=== PATIENT | female | born 1955 | race American Indian/Alaskan Native ===

== ENCOUNTER 2016-05-10 13:12 | Outpatient (RCR) | payer BC ==
[2016-04-30 15:22] LABS: BASOPHILS % (AUTO) 0 % (0-10); EOSINOPHILS % (AUTO) 0 % (0-10); LYMPHOCYTES # (AUTO) 2.2 X 10^3 (1.0-4.0); LYMPHOCYTES % (AUTO) 39 % (12-44); MEAN CORPUSCULAR HEMOGLOBIN 28 PG (25-34); MEAN CORPUSCULAR HGB CONC 33 G/DL (32-36); MEAN CORPUSCULAR VOLUME 85 FL (80-99); MEAN PLATELET VOLUME 9.4 FL (7.4-10.4); MONOCYTES # (AUTO) 0.4 X 10^3 (0.0-1.0); MONOCYTES % (AUTO) 7 % (0-12); NEUTROPHILS # (AUTO) 2.9 X 10^3 (1.8-7.8); NEUTROPHILS % (AUTO) 53 % (42-75); PLATELET COUNT 226 10^3/uL (130-400); RED BLOOD COUNT 4.21 10^6/uL (4.35-5.85); RED CELL DISTRIBUTION WIDTH 13.5 % (10.0-14.5); WHITE BLOOD COUNT 5.5 10^3/uL (4.3-11.0)
[~2016-05-10 13:12] MED LIST: AMLO5TAB2 PO; BUPR100T15 PO; CALC-880 PO; DOXY100C2 PO; FENO160T PO; FENO160T12 PO; HCT25T PO; HYDR25TA4 PO; LEVO112T2 PO; LEVO750T9 PO; LEVO80CA PO; LINA5TAB PO; LIRA0.6P SC; LIRA0.6P2 SQ; LOSA100T28 PO; LOSA100T7 PO; MECL-106 PO; METF-380 PO; METF1000 PO; METO50TA2 PO; MTP50T PO; ONDA8TAB9 PO; SAXA5TAB PO; SIMV20TA3 PO; SIMV40TA4 PO; SULF1TAB35 PO; VENL75TA74 PO
[2016-05-10 13:31] LABS: BASOPHILS % (AUTO) 0 % (0-10); EOSINOPHILS % (AUTO) 0 % (0-10); LYMPHOCYTES # (AUTO) 2.1 X 10^3 (1.0-4.0); LYMPHOCYTES % (AUTO) 47 % (12-44); MEAN CORPUSCULAR HEMOGLOBIN 29 PG (25-34); MEAN CORPUSCULAR HGB CONC 34 G/DL (32-36); MEAN CORPUSCULAR VOLUME 85 FL (80-99); MEAN PLATELET VOLUME 9.5 FL (7.4-10.4); MONOCYTES # (AUTO) 0.4 X 10^3 (0.0-1.0); MONOCYTES % (AUTO) 9 % (0-12); NEUTROPHILS % (AUTO) 44 % (42-75); PLATELET COUNT 306 10^3/uL (130-400); RED BLOOD COUNT 3.98 10^6/uL (4.35-5.85); RED CELL DISTRIBUTION WIDTH 13.3 % (10.0-14.5); WHITE BLOOD COUNT 4.5 10^3/uL (4.3-11.0)
[2016-05-10 14:31] LABS: ALBUMIN 3.9 G/DL (3.2-4.5); BILIRUBIN,TOTAL 0.5 MG/DL (0.1-1.0); CALCIUM 9.5 MG/DL (8.5-10.1); CREATININE SERUM 1.54 MG/DL (0.60-1.30); POTASSIUM 4.2 MMOL/L (3.6-5.0)
[2016-05-16] MEDS ORDERED: SULF1TAB34 PO (15:21)
[2016-05-16] MEDS ORDERED: FENO160T12 PO (15:21)
[2016-05-17] MEDS ORDERED: SULF-222 PO (08:29)
[2016-05-17] MEDS ORDERED: AMLO5TAB2 PO (08:29)
[2016-05-18] MEDS ORDERED: VANC1.254 IV (12:10)
== END 2016-07-29 | disposition home or self-care (01) ==
LOC: ONC 13:12
PROVIDERS: ATTEND Internal Medicine Hematology & Oncology
DX: D61.818 Other pancytopenia (principal); D69.6 Thrombocytopenia, unspecified
CPT/HCPCS: 36415; 80053; 85025; 99213

== ENCOUNTER 2016-12-07 19:44 | Outpatient (CLI) | payer BC ==
[~2016-12-07 19:44] MED LIST changes: +SULF-222 PO; +SULF1TAB34 PO; +VANC1.254 IV
== END 2016-12-08 06:30 | disposition home or self-care (01) ==
LOC: SLEEP 19:44
PROVIDERS: ATTEND Family Medicine
DX: G47.33 Obstructive sleep apnea (adult) (pediatric) (principal); I10 Essential (primary) hypertension
CPT/HCPCS: 95811

== ENCOUNTER → 2017-08-26 | Outpatient (REF) ==
[~2017-08-26] MED LIST changes: +METO50TA15 PO; -METO50TA2 PO; +VANC1.2520 IV; -VANC1.254 IV
--- NOTE | 2017-08-26 10:59 | Diagnostic Imaging Report ---
INDICATION: Knee pain after popping sensation felt a pop while walking 3 days ago. COMPARISON: 01/23/2013. FINDINGS: There is a curvilinear focus of mineralization along the proximal and medial aspect of the medial femoral condyle which is likely due to old MCL injury. No acute fracture. Mild joint space narrowing in the medial and lateral compartments. Tiny osteophytes in the patellofemoral compartment. No knee joint effusion. There is a 6 mm mineralized focus in the anterior aspect of the intercondylar notch. IMPRESSION: 1. No acute fracture. 2. Imaging features are indicative of old MCL injury. 3. There is likely a 6 mm mineralized loose body within the intercondylar notch. Nonemergent MRI of the knee could be performed for further characterization. Dictated by: Dictated on workstation # [id number]
== END | disposition home or self-care (01) ==
LOC: OCC 10:21
PROVIDERS: ATTEND Nurse Practitioner Family
CPT/HCPCS: 73562

== ENCOUNTER 2018-09-01 16:35 | Emergency (ER) | payer BC ==
[~2018-09-01] VITALS: Ht 160 cm; Wt 94.3 kg
[~2018-09-01 16:35] MED LIST changes: -AMLO5TAB2 PO; +AMLO5TAB9 PO; -LOSA100T28 PO; +LOSA100T57 PO; +METF-399 PO; -METF1000 PO
--- OUTSIDE RECORDS SUMMARY | 2018-09-01 16:45 | XMS REPORT ---
Author Author SUSAN BRAVO [facility] Address [address] [place] [address] Care Team Providers Care Cane Burner Name Role Phone SUSAN BRAVO Unavailable PROBLEMS Type Condition ICD9-CM Code [id number] Code Onset Dates Condition Status SNOMED Code Problem Essential hypertension I10 Active 12824672 ALLERGIES Substance Reaction Event Type Date Status SulfADIAZINE Sodium anaphylaxis Drug Allergy Jul, Active Lisinopril cough Drug Allergy Jul, Active ENCOUNTERS Encounter Location Date Diagnosis [facility] [address] [id number] Aug, Contact dermatitis and eczema due to plant L24.7 ; Dysfunction of left eustachian tube H69.82 and Otalgia of left ear H92.02 [facility] [address] [id number] Jul, Dysfunction of left eustachian tube H69.82 ; Oral thrush B37.0 and BMI 40.0-44.9, adult Z68.41 [facility] [address] [id number] Jul, Acute non-recurrent pansinusitis J01.40 ; Cough in adult R05 and BMI 40.0-44.9, adult Z68.41 [facility] [place] [id number] [address] Jul, [facility] [place] [id number] [place] [phone] Mar, [facility] [place] [address] [id number] [address] Mar, IMMUNIZATIONS No Known Immunizations SOCIAL HISTORY Never Assessed REASON FOR VISIT cough/Upper respiratory congestion-[place]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 PLAN OF CARE Activity Details Follow Up prn Reason: VITAL SIGNS Height 62 in 2017-07-19 Weight 225 lbs 2017-07-19 Temperature 98 degrees Fahrenheit 2017-07-19 Heart Rate 78 bpm 2017-07-19 Respiratory Rate 20 2017-07-19 BMI 41.15 kg/m2 2017-07-19 Blood pressure systolic 138 mmHg 2017-07-19 Blood pressure diastolic 76 mmHg 2017-07-19 MEDICATIONS Medication Instructions Dosage Frequency Start Date End Date Duration Status Tessalon Perles 100 mg Orally Three times a day 1 capsule as needed for cough 8h Jul, Active Furosemide Active Victoza Active Metanx Active Losartan Potassium Active Fetzima Titration Active Saxagliptin HCl Active Synthroid Active Oxybutynin Active Potassium Chloride Active NIFEdipine Active ARIPiprazole ER Active Metformin HCl Active Metaproterenol Sulfate Active Amoxicillin 875 MG Orally every 12 hrs 1 tablet 12h Jul, Aug, 14 days Active Cetirizine HCl Active RESULTS No Results PROCEDURES No Known procedures INSTRUCTIONS MEDICATIONS ADMINISTERED No Known Medications MEDICAL (GENERAL) HISTORY Type Description Date Surgical History rotator cuff repair 1995 Surgical History 1985 Surgical History gallbladder removal 1989 Surgical History myofundiplication 2013 Surgical History hiatal hernia repair 1984 Surgical History EGD 1984 Hospitalization History reaction to sulfa medication 2016
--- OUTSIDE RECORDS SUMMARY | 2018-09-01 16:45 | XMS REPORT ---
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82 and Otalgia of left ear H92.02 [facility] [place], [facility] [address] [id number] Jul, Dysfunction of left eustachian tube H69.82 ; Oral thrush B37.0 and BMI 40.0-44.9, adult Z68.41 [facility] [place] [address] [id number] [id number] Jul, Acute non-recurrent pansinusitis J01.40 ; Cough in adult R05 and BMI 40.0-44.9, adult Z68.41 [facility] [id number], [place] [address] Jul, [facility] [address] [place] [address] Mar, [facility] [id number] [address] Mar, IMMUNIZATIONS No Known Immunizations SOCIAL HISTORY Never Assessed REASON FOR VISIT poison diamond[place], Left ear pain PLAN OF CARE Activity Details Follow Up prn Reason: VITAL SIGNS Height 62 in 2017-09-04 Weight 215.6 lbs 2017-09-04 Temperature 97.4 degrees Fahrenheit 2017-09-04 Heart Rate 74 bpm 2017-09-04 Respiratory Rate 18 2017-09-04 BMI 39.43 kg/m2 2017-09-04 MEDICATIONS Medication Instructions Dosage Frequency Start Date End Date Duration Status Metaproterenol Sulfate Active Metanx Active Fetzima Titration Active Saxagliptin HCl Active Cetirizine HCl Active Losartan Potassium Active Synthroid Active ARIPiprazole ER Active NIFEdipine Active PredniSONE 20 MG Orally Once a day 2 tablet 24h 5 day(s) Active Victoza Active Oxybutynin Active Furosemide Active Tessalon Perles 100 mg Orally Three times a day 1 capsule as needed for cough 8h Jul, Active Potassium Chloride Active Metformin HCl Active RESULTS No Results PROCEDURES No Known procedures INSTRUCTIONS MEDICATIONS ADMINISTERED No Known Medications MEDICAL (GENERAL) HISTORY Type Description Date Surgical History rotator cuff repair 1995 Surgical History 1985 Surgical History gallbladder removal 1989 Surgical History myofundiplication 2013 Surgical History hiatal hernia repair 1984 Surgical History EGD 1984 Hospitalization History reaction to sulfa medication 2016
--- OUTSIDE RECORDS SUMMARY | 2018-09-01 16:45 | XMS REPORT ---
Author Author DARYL Cruz Organization [facility] Address [address] [place] [address] Care Team Providers Care Art Glass Designer Name Role Phone DARYL Cruz Unavailable PROBLEMS Type Condition ICD9-CM Code [id number] Code Onset Dates Condition Status SNOMED Code Problem Essential hypertension I10 Active 46510804 ALLERGIES Substance Reaction Event Type Date Status SulfADIAZINE Sodium anaphylaxis Drug Allergy Jul, Active Lisinopril cough Drug Allergy Jul, Active ENCOUNTERS Encounter Location Date Diagnosis [facility] [address] [id number] Aug, Contact dermatitis and eczema due to plant L24.7 ; Dysfunction of left eustachian tube H69.82 and Otalgia of left ear H92.02 [facility] [address] [id number] Jul, Dysfunction of left eustachian tube H69.82 ; Oral thrush B37.0 and BMI 40.0-44.9, adult Z68.41 [facility] [address] [id number] [id number] Jul, Acute non-recurrent pansinusitis J01.40 ; Cough in adult R05 and BMI 40.0-44.9, adult Z68.41 [facility] [address] [id number] [address] Jul, [facility] [address], [place] [address] Mar, [facility] [address] [id number] [address] Mar, IMMUNIZATIONS Vaccine Route Administration Date Status DEPO MEDROL 80 MG/ML IM Intramuscular Jul 31, 2017 Administered SOCIAL HISTORY Never Assessed REASON FOR VISIT sore throat-[facility] PLAN OF CARE Activity Details Follow Up prn Reason: VITAL SIGNS Height 62 in 2017-07-31 Weight 225 lbs 2017-07-31 Temperature 97.1 degrees Fahrenheit 2017-07-31 Heart Rate 73 bpm 2017-07-31 Respiratory Rate 18 2017-07-31 BMI 41.15 kg/m2 2017-07-31 Blood pressure systolic 161 mmHg 2017-07-31 Blood pressure diastolic 82 mmHg 2017-07-31 MEDICATIONS Medication Instructions Dosage Frequency Start Date End Date Duration Status Metaproterenol Sulfate Active Saxagliptin HCl Active Furosemide Active Potassium Chloride Active NIFEdipine Active Metanx Active ARIPiprazole ER Active Cetirizine HCl Active Diflucan 100 mg Orally once daily 1 tablet 24h Jul, 5 Aug, 2017 05 days Active Fetzima Titration Active Synthroid Active Amoxicillin 875 MG Orally every 12 hrs 1 tablet 12h Jul, Aug, 14 days Active Losartan Potassium Active Oxybutynin Active Victoza Active Metformin HCl Active Tessalon Perles 100 mg Orally Three times a day 1 capsule as needed for cough 8h Jul, Active RESULTS No Results PROCEDURES Procedure Date Ordered Result Body Site DEPO MEDROL 80 MG/ML Jul 31, 2017 THER/PROPH/DIAG INJ, SC/IM Jul 31, 2017 INSTRUCTIONS MEDICATIONS ADMINISTERED No Known Medications MEDICAL (GENERAL) HISTORY Type Description Date Surgical History rotator cuff repair 1995 Surgical History 1985 Surgical History gallbladder removal 1989 Surgical History myofundiplication 2013 Surgical History hiatal hernia repair 1984 Surgical History EGD 1984 Hospitalization History reaction to sulfa medication 2016
--- OUTSIDE RECORDS SUMMARY | 2018-09-01 16:45 | XMS REPORT | Clinical Summary ---
Author Author [facility] Organization [facility] Address Unknown Phone Unavailable Care Team Providers Care Data Modeler Name Role Phone PCP Unavailable Allergies Active Allergy Reactions Severity Noted Date Comments Sulfamethoxazole-Trimetho Other (See Comments) 05/21/2016 Pancytopenia , nausea, prim fever Lisinopril Cough 05/18/2016 Current Medications Prescription Sig. Disp. Refills Start End Date Status Date fenofibrate (TRIGLIDE) Take 160 mg by mouth Active 160 MG tablet daily. levothyroxine (SYNTHROID, Take 112 mcg by mouth Active LEVOTHROID) 112 MCG daily. tablet metFORMIN (GLUCOPHAGE) Take 1,000 mg by mouth 2 Active 1000 MG tablet (two) times a day with meals. calcium-vitamin D 500 Take 1 tablet by mouth 2 Active mg(1,250mg) -200 unit per (two) times a day with tablet meals. LIRAGLUTIDE (VICTOZA Inject 1.2 mg under the Active SUBQ) skin daily. metoprolol tartrate Take by mouth. 60 09/09/19 Active (LOPRESSOR) 50 MG tablet 14 losartan (COZAAR) 100 MG Take by mouth. 30 09/09/19 Active tablet 14 levomilnacipran (FETZIMA) Take 80 mg by mouth Active 80 mg Cs24 daily. buPROPion (WELLBUTRIN) Take 100 mg by mouth 2 Active 100 MG tablet (two) times a day. sAXagliptin (ONGLYZA) 5 Take 5 mg by mouth daily. Active mg tablet amLODIPine (NORVASC) 5 MG Take 1 tablet (5 mg 60 tablet 0 05/21/20 Active tablet total) by mouth 2 (two) 16 times a day. Active Problems Problem Noted Date Abnormal finding on urinalysis 05/19/2016 Last Assessment & Plan: 05/16 outside urinalysis noted - specimen likely contaminated Repeat normal See pancytopenia Renal insufficiency 05/19/2016 Last Assessment & Plan: Resolved Type 2 diabetes mellitus (HCC) 05/19/2016 Last Assessment & Plan: Hyperglycemia mild Resume metformin SSI Pancytopenia (HCC) 05/18/2016 Last Assessment & Plan: Recurrent/relapsing ANC 1381 Thrombocytopenia resolved & Hgb stable Afebrile Status post course of doxycycline for positive RMSF serology and Bactrim for suspected UTI Outside urine culture produced coag-neg Staph Neutropenia precautions Await further hematology recommendations Abnormal LFTs (liver function tests) 05/18/2016 Last Assessment & Plan: CT consistent with fatty liver Improved on 05/19 Hypokalemia 05/18/2016 Last Assessment & Plan: Resolved Hypertension 05/18/2016 Last Assessment & Plan: Continue losartan and Lopressor Increase amlodipine Neoplasm of uncertain behavior of skin 06/20/2015 Incisional hernia 03/05/2014 CT Intraluminal Mass Lesion Ascending Colon ___cm 08/07/2012 Overview: Problem: CT Intraluminal Mass Lesion Ascending Colon ___cm Resolved Problems Problem Noted Date Resolved Date Acute cystitis 05/18/2016 05/18/2016 Family History Medical History Relation Name Comments Colon cancer Other Family History; Colon Cancer; Hypertension Other Family History; Hypertension; Heart disease Other Family History; Heart Disease; Diabetes Other Family History; Diabetes Mellitus; Relation Name Status Comments Other Other Other Other Social History Tobacco Use Types Packs/Day Years Used Date Never Smoker Alcohol Use Drinks/Week oz/Week Comments No Sex Assigned at Date Recorded Not on file Last Filed Vital Signs Vital Sign Reading Time Taken Blood Pressure 168/89 05/21/2016 3:37 PM PASSPORT SUPPORT MANAGER Pulse 78 05/21/2016 3:37 PM PASSPORT SUPPORT MANAGER Temperature 36.8 C (98.2 F) 05/21/2016 3:37 PM PASSPORT SUPPORT MANAGER Respiratory Rate 18 05/21/2016 3:37 PM PASSPORT SUPPORT MANAGER Oxygen Saturation 97% 05/21/2016 3:37 PM PASSPORT SUPPORT MANAGER Inhaled Oxygen - - Concentration Weight 98.1 kg (216 lb 4.3 oz) 05/21/2016 3:22 AM PASSPORT SUPPORT MANAGER Height 157.5 cm (5' 2") 05/20/2016 3:31 AM PASSPORT SUPPORT MANAGER Body Mass Index 39.56 05/21/2016 3:22 AM PASSPORT SUPPORT MANAGER Plan of Treatment Health Maintenance Due Date Last Done Comments Diabetes Mellitus 1956 Hemoglobin A1C Diabetes Mellitus 1956 Ophthalmology Exam Lipid Screening 1956 Td # 1956 Diabetes Mellitus Foot 1966 Exam Pneumococcal Immunization 10/16/1975 19-64 Low/Medium Risk# (1 of 1 - PPSV23) Cervical Cancer Screening 1977 via Pap Smear Colorectal Screening via 2006 Colonoscopy Mammogram Screening 2006 Zoster Vaccine# (1 of 2) 2006 Influenza Vaccine (Season 05/01/2019 Ended) Hepatitis C Screen Completed 05/19/2016 Implants Implanted Type Area Tong Setter Device Expiration Model / Identifier Date Serial / Lot Implant Mesh Ventralight St 6" X Non-Tissue N/A: BARD DAVOL 2014 [id number] / 10" Synthetic [id number] - [id number] Implant Abdomen SURGICAL / Implanted: Qty: 1 on 03/05/2014 by [id number] Hansa Tomlinson MD Results Not on filefrom Last 3 Months
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
--- NOTE | 2018-09-01 19:18 | NUR ---
PATIENT AWAKE AND ALERT, SITTING IN ROOM. NO SIGNS OF DISTRESS PRESENT. PATIENT DENIES ANY NEEDS AT THIS TIME.
[2018-09-01] MEDS ORDERED: OSLT75C PO (19:21)
--- NOTE | 2018-09-01 19:22 | ED General ---
General Chief Complaint: Cough/Cold/Flu Symptoms Stated Complaint: COUGH,CONGESTED,FEVER Nursing Triage Note: PATIENT AMBULATORY TO ER WITH ANOTHER FAMILY MEMBER WITH COMPLAINT OF COUGH, CONGESTION, AND FEVER. PATIENT ALSO COMPLAINS OF GENERALIZED BODY ACHES X 2 DAYS. OTHER FAMILY MEMBERS ARE SICK WITH SIMILAR SYMPTOMS. Nursing Sepsis Screen: No Definite Risk Source of Information: Patient Exam Limitations: No Limitations Allergies and Home Medications Allergies Coded Allergies: No Known Drug Allergies (Unverified , 09/23/13) Home Medications Amlodipine Besylate 5 Mg Tablet, 5 MG PO DAILY, (Reported) Bupropion HCl 100 Mg Tablet, 100 MG PO BID, (Reported) Calcium Carbonate/Vitamin D3 1 Each Tablet, 1 TAB PO BID, (Reported) Fenofibrate 160 Mg Tablet, 160 MG PO DAILY, (Reported) Levomilnacipran Hydrochloride 80 Mg Cap.sa.24h, 80 MG PO DAILY, (Reported) Levothyroxine Sodium 112 Mcg Tablet, 112 MCG PO DAILY, (Reported) Liraglutide 0.6 Mg/0.1 Ml Pen.injctr, 1.2 MG SC DAILY, (Reported) Losartan Potassium 100 Mg Tablet, 100 MG PO DAILY, (Reported) Metformin HCl 1,000 Mg Tablet, 1,000 MG PO BID, (Reported) Metoprolol Tartrate 50 Mg Tablet, 50 MG PO BID, (Reported) Saxagliptin HCl 5 Mg Tablet, 5 MG PO DAILY, (Reported) Vancomycin HCl/D5w 1.25 Gm/250 Ml Plast..bag, 1.25 GM IV DAILY Prescribed by: MITCH PEREZ on 05/18/16 1210 Patient Home Medication List Home Medication List Reviewed: Yes Review of Systems Review of Systems Constitutional: see HPI EENTM: see HPI Respiratory: see HPI Cardiovascular: no symptoms reported Gastrointestinal: no symptoms reported Genitourinary: no symptoms reported : No Musculoskeletal: no symptoms reported Skin: no symptoms reported Psychiatric/Neurological: No Symptoms Reported Hematologic/Lymphatic: No Symptoms Reported Past Lqsorvx-Ayrckh-Iwnrjb Hx Past Med/Social Hx: Reviewed Nursing Past Med/Soc Hx Patient Social History Alcohol Use: Denies Use Recreational Drug Use: No Smoking Status: Never a Smoker Recent Foreign Travel: No Contact w/Someone Who Travel: No Recent Infectious Disease Expo: No Recent Hopitalizations: Yes Immunizations Up To Date Tetanus Booster (TDap): Less than 5yrs Date of Pneumonia Vaccine: Jul 01, 2012 Date of Influenza Vaccine: Mar 26, 2013 Seasonal Allergies Seasonal Allergies: No Past Medical History Surgeries: Yes (rotator cuff, d&c, hernia repairs, mass removed from colon, partial thyroid) Bowel Surgery, Section, Gallbladder Respiratory: Yes Sleep Apnea Currently Using CPAP: Yes (PT HAS CPAP; REPORTS NONCOMPLIANCE) Currently Using BIPAP: No Cardiac: Yes High Cholesterol, Hypertension Neurological: No Reproductive Disorders: No Female Reproductive Disorders: Denies Sexually Transmitted Disease: No HIV/AIDS: No Genitourinary: No Gastrointestinal: Yes Chronic Constipation, Hiatal Hernia, Gall Bladder Disease Musculoskeletal: No Endocrine: Yes Hypothyroidsim, Diabetes, Non-Insulin dep HEENT: No Cancer: No Psychosocial: Yes Anxiety, Depression Integumentary: No 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 0.0oz. 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 II-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 Norm as Tested Skin: Normal Color, Warm/Dry Progress/Results/Core Measures Suspected Sepsis Recent Fever Within 48 Hours: Yes Infection Criteria Present: None New/Unexplained Altered Menta: No Sepsis Screen: No Definite Risk SIRS Temperature:98.8 Pulse: 96 Respiratory Rate: 18 Blood Pressure 180 /87 Mean: 118 Results/Orders Micro Results Microbiology 09/01/18 Influenza Types A,B Antigen (SHELLY) - Final, Complete My Orders Orders - JUDY HARLEY MD Influenza A And B Antigens (09/01/18 16:43) Vital Signs/I&O 09/01/18 17:20 Temp 98.8 Pulse 96 Resp 18 B/P (MAP) 180/87 (118) O2 Delivery Room Air Capillary Refill : Less Than 3 Seconds Blood Pressure Mean: 118 Departure Impression Primary Impression: Influenza-like symptoms Disposition: HOME, SELF-CARE Condition: Stable Departure-Patient Inst. Decision time for Depature: 19:20 Referrals: STEPH SIMMONS MD (PCP/Family) Primary Care Physician Patient Instructions: Flu, Adult (DC) Add. Discharge Instructions: Drink lots of clear liquids. Complete your Tamiflu as prescribed. Return to care if symptoms are worsening or you're not improving as anticipated. Complete the entire 10 dose course of Tamiflu. All discharge instructions reviewed with patient and/or family. Voiced understanding. Scripts Oseltamivir Phosphate (Tamiflu) 75 Mg Cap 75 MG PO BID, #10 CAP Prov: JUDY HARLEY MD 09/01/18 JUDY HARLEY MD Sep 01, 2018 19:22
[2018-09-01 19:29] VITALS: BP 154/91
== END 2018-09-01 19:30 | disposition home or self-care (01) ==
LOC: EDUNIT# 16:35 → ER 16:36
DX: R05 Cough (principal); R09.81 Nasal congestion; R50.9 Fever, unspecified; R52 Pain, unspecified; G47.30 Sleep apnea, unspecified; E78.00 Pure hypercholesterolemia, unspecified; I10 Essential (primary) hypertension; E03.9 Hypothyroidism, unspecified; E11.9 Type 2 diabetes mellitus without complications; F41.9 Anxiety disorder, unspecified; F32.9 Major depressive disorder, single episode, unspecified; Z87.19 Personal history of other diseases of the digestive system; Z91.19 Patient's noncompliance with other medical treatment and regimen; Z79.84 Long term (current) use of oral hypoglycemic drugs; Z82.49 Family history of ischemic heart disease and other diseases of the circulatory system; Z98.890 Other specified postprocedural states
CPT/HCPCS: 87804

== ENCOUNTER 2018-11-20 13:28 | Outpatient (RCR) | payer BC ==
[~2018-11-20 13:28] MED LIST changes: +OSLT75C PO; -VANC1.2520 IV; +VANC1.2521 IV
== END 2018-11-20 14:46 | disposition home or self-care (01) ==
PROVIDERS: ATTEND Orthopaedic Surgery
DX: M25.562 Pain in left knee (principal)

== ENCOUNTER → 2019-09-24 | Outpatient (CLI) | payer BC ==
[~2019-09-24] MED LIST changes: +CATHETER FLUSH 10 ML SYR IV PRN; +HOLD METFORMIN - RECEIVED CONTRAST 20 ML VIAL IV SCH; +IOHEXOL 350 MG/ML 100 ML (OMNIPAQUE 350) VIAL IV ONE; -MECL-106 PO; +MECL-149 PO; +NS 100 ML (IVPB) BAG IV ONE; +SIMV40TA25 PO; -SIMV40TA4 PO
--- NOTE | 2019-09-24 16:37 | Diagnostic Imaging Report ---
PROCEDURE: MR imaging of the cervical spine without contrast. TECHNIQUE: Multiplanar, multisequence MR imaging of the cervical spine was performed without contrast. INDICATION: Movement disorder. FINDINGS: There is severe multilevel cervical canal stenosis. The canal is somewhat small on a congenital basis with this exacerbated by multilevel osteophyte disc material as well as some facet arthrosis. The cord itself appears nonacute but is flattened and thinned at the C4 and C5 levels. No paravertebral mass, hemorrhage, or fluid collection. Craniocervical relationship, the C1-C2, and the C2-C3 levels and discs are normal. C3-C4: There is posterior osteophyte disc material indenting the ventral thecal sac with an at least moderate severity of canal stenosis. The midline AP canal diameter is narrowed to 7.2 mm, and slight effacement of the midline ventral cord is present. There are moderate degrees of biforaminal narrowing. C4-C5: Posterior osteophyte disc material flattens and indents the ventral thecal sac with severe canal stenosis with severe left and jabkkdhg-ni-oroirj right foraminal narrowing. There is flattening of the ventral cord surface without syrinx, cord edema, or cord hemorrhage. No focal myelomalacia. C5-C6: Posterior osteophyte disc material flattens and effaces the ventral thecal sac with asthwyhc-ru-gtzttw canal stenosis with orgepoaa-mf-hzjjdl biforaminal narrowing. C6-C7: No substantial canal or foraminal stenosis. C7-T1: No substantial canal or foraminal stenosis. IMPRESSION: Severe stenosis of the canal and neural foramen at multiple levels on a multifactorial basis with a component of relatively small canal on a congenital basis exacerbated by osteophyte disc material. There is associated flattening and thinning of the cord without cord signal pathology, edema, or syrinx. Normal bony alignment with no acute osseous pathology. Dictated by: Dictated on workstation # [id number]
--- NOTE | 2019-09-24 16:48 | Diagnostic Imaging Report ---
PROCEDURE: CT head with and without contrast. TECHNIQUE: Multiple contiguous axial images were obtained through the brain before and after the administration of intravenous contrast. Auto Exposure Controls were utilized during the CT exam to meet ALARA standards for radiation dose reduction. INDICATION: Leg tremors. COMPARISON: No priors. FINDINGS: Pre and post IV contrast-enhanced head CT performed. There is no hemorrhage, hydrocephalus, edema, mass, or mass effect. No abnormal parenchymal or meningeal enhancement following contrast. No findings of an elevation of the intracerebral pressures. There is incidental ossification of the falx. Basilar cisterns are patent. No sulcal effacement. IMPRESSION: No acute-appearing abnormality. Dictated by: Dictated on workstation # [id number]
== END ==
LOC: RAD 14:10
PROVIDERS: ATTEND Nurse Practitioner Family
DX: M48.02 Spinal stenosis, cervical region (principal); R25.1 Tremor, unspecified; E11.9 Type 2 diabetes mellitus without complications; I10 Essential (primary) hypertension; E78.5 Hyperlipidemia, unspecified
CPT/HCPCS: 70470; 72141

== ENCOUNTER 2019-11-24 09:04 | Outpatient (RCR) | payer BC ==
[~2019-11-24] VITALS: Ht 160 cm; Wt 90.0 kg
[~2019-11-24 09:04] MED LIST changes: +ARIP10TA17 PO; -CATHETER FLUSH 10 ML SYR IV PRN; +FURO40TA4 PO; -HOLD METFORMIN - RECEIVED CONTRAST 20 ML VIAL IV SCH; -IOHEXOL 350 MG/ML 100 ML (OMNIPAQUE 350) VIAL IV ONE; +MELO15TA39 PO; +NIFE30TA89 PO; -NS 100 ML (IVPB) BAG IV ONE; +OXYB10TA29 PO; +POTA10TA36 PO; +SEMA0.25 SQ
== END 2019-11-24 15:47 | disposition home or self-care (01) ==
LOC: PREOP 09:04
PROVIDERS: ATTEND Surgery
DX: Z01.818 Encounter for other preprocedural examination (principal); Z11.59 Encounter for screening for other viral diseases
CPT/HCPCS: 87635

== ENCOUNTER 2019-11-27 12:33 | Day surgery (SDC) | payer BC ==
[2019-11-27] VITALS (12 sets, daily range): BP systolic 136–189; BP diastolic 64–87
[~2019-11-27] VITALS: Ht 160 cm; Wt 90.0 kg
[~2019-11-27 12:33] MED LIST changes: +NS IV 500 ML 500 ML ONE
[2019-11-27] MEDS ORDERED: NS IV 500 ML 500 ML IV PRN (12:39)
--- NOTE | 2019-11-27 12:39 | Conscious Sedation/ASA ---
Conscious Sedation Pre-Proced Time 12:00 ASA Score 2 For ASA 3 and 4: Consider anesthesia and medical clearance. Also, for patients with a history of failed moderate sedation consider anesthesia. Airway Lungs Heart ASA score ASA 1: a normal healthy patient ASA 2: a patient with a mild systemic disease (mid diabetes, controlled hypertension, obesity ASA 3: a patient with a severe systemic disease that limits activity (angina, COPD, prior Myocardial infarction) ASA 4: a patient with an incapacitating disease that is a constant threat to life (CHF, renal failure) ASA 5: a moribund patient not expected to survive 24 hrs. (ruptured aneurysm) ASA 6: a declared brain- patient whose organs are being harvested. For emergent operations, add the letter E after the classification Mallampati Classification Grade 2 Sedation Plan Analgesia, Amnesia, Plan communicated to team members, Discussed options with patient/fam, Discussed risks with patient/fam The patient is an appropriate candidate to undergo the planned procedure, sedation, and anesthesia. The patient immediately re-assessed prior to indication. NIRU SMALLS MD November 27, 2019 12:39
--- NOTE | 2019-11-27 12:40 | Progress Note-Pre Operative ---
Pre-Operative Progress Note H&P Reviewed The H&P was reviewed, patient examined and no changes noted. Date Seen by Provider: November 27, 2019 Time Seen by Provider: 12:00 Date H&P Reviewed: November 27, 2019 Time H&P Reviewed: 12:00 Pre-Operative Diagnosis: screening o NIRU SMALLS MD November 27, 2019 12:39
--- NOTE | 2019-11-27 12:41 | Discharge Inst-Surgical ---
D/C Lap Instructions-SLIM Follow Up Activity as tolerated High Fiber Diet 25g or more per day Avoid Alcohol, Caffeine, Spicy [place] and Acid foods. Drink 64 fluid oz or more of fluids per day. Symptoms to Report: Fever over 101 degree F, Nausea/Vomiting If any problems/questions: Contact your physician or go to Emergency Room NIRU SMALLS MD November 27, 2019 12:41
[2019-11-27] MEDS ORDERED: ACETAMINOPHEN 325 MG TABLET PO PRN (12:45)
[2019-11-27] MEDS ORDERED: fentaNYL INJECTION 100 MCG/2 ML AMP IVP ONE (12:45)
[2019-11-27] MEDS ORDERED: HYDROcodone/APAP 5 MG/325 MG (LORTAB) TAB PO PRN (12:45)
[2019-11-27] MEDS ORDERED: ONDANSETRON 4 MG/2 ML (SDV) Z0FRAN IVP PRN (12:45)
[2019-11-27] MEDS ORDERED: morphine INJ 10 MG/ML 1ML (SYR OR VIAL) IVP PRN ×2 (12:45)
[2019-11-27] MEDS ORDERED: LIDOCAINE JELLY 2% 6 ML SYRINGE MM PRN (12:45)
[2019-11-27] MEDS ORDERED: LIDOCAINE JELLY 2% 6 ML SYRINGE ONE (13:37)
[2019-11-27] MEDS ORDERED: fentaNYL INJECTION 100 MCG/2 ML AMP ONE (13:37)
[2019-11-27] MEDS ORDERED: MIDAZOLAM 5 MG/5 ML (VERSED) VIAL ONE ×2 (13:37)
[2019-11-27] MEDS: MIDAZOLAM 5 MG/5 ML (VERSED) VIAL IV PRN ×5 (13:50→14:04)
--- NOTE | 2019-11-27 14:29 | Progress Note-Post Operative ---
Post-Operative Progess Note Surgeon (s)/Sales Financial Analyst (s) Surgeon NIRU SMALLS MD Sales Financial Analyst: none Pre-Operative Diagnosis screening colo Post-Operative Diagnosis normal ileocolonic anastamosis, remainder colon and rectum Procedure & Operative Findings Date of Procedure 11/27/19 Procedure Performed/Findings colonoscopy Anesthesia Type cs Estimated Blood Loss Estimated blood loss (mL): minimal Specimens/Packing Specimens Removed none NIRU SMALLS MD November 27, 2019 14:29
--- NOTE | 2019-11-27 22:12 | OPERATIVE REPORT ---
DATE OF SERVICE: 11/27/2019 ATTENDING PRIMARY CARE PHYSICIAN: PREOPERATIVE DIAGNOSIS: History of large right colonic polyp. POSTOPERATIVE DIAGNOSIS: Normal ileocolonic anastomosis. Normal descending sigmoid and rectum. PROCEDURE: EGD with colonoscopy. SURGEON: Niru Smalls MD. ANESTHESIA: Conscious sedation. ESTIMATED BLOOD LOSS: Minimal. FINDINGS: Normal ileocolonic anastomosis. Normal descending sigmoid and rectum. DISPOSITION: The patient tolerated the procedure well. INDICATIONS: The patient is a 64-year-old female known to us. We have done a colonoscopy on her in 2014, she was found to have a large lesion of the right colon, which could not be removed endoscopically. This was suspicious and then she underwent a laparoscopic right hemicolectomy on 08/19/2012, and the pathology came back as a benign adenoma. She is here for followup colonoscopy. At this time, she states she is doing well and does not report any major issues with diarrhea nor constipation as well as no red blood per rectum nor any dark tarry stools. DESCRIPTION OF PROCEDURE: The patient was brought to the endoscopy suite, laid in the left lateral decubitus position. After adequate IV pain and sedative medications and conscious sedation anesthesia, digital rectal examination was performed. Mild chronic stage II external and internal hemorrhoids were identified, which were not actively edematous nor inflamed and no bleeding. Normal sphincter tone was felt and there were no palpable masses. The endoscope was then intubated in the anus and rectum gently insufflated. The endoscope was then advanced through the valves of Lopez of the rectum with no polyps or any neoplasms identified. Through the sigmoid colon, no diverticulosis identified. The endoscope was then advanced to the remainder of the descending and transverse colon to the ileocolonic anastomosis, which was normal with no recurrent polyps or any neoplasms identified. The endoscope was then slowly withdrawn while taking a second look and suctioning of residual air with no additional findings. The patient tolerated the procedure well. No lesions were identified on this colonoscopy. She also does not have a family history of colon cancer and if she is asymptomatic, she may wait 10 years for her next colonoscopy. Job ID: [id number] DocumentID: [id number] Dictated Date: 11/27/2019 14:25:06 Packing Clerk Date: 11/27/2019 22:11:47 Dictated By: NIRU SMALLS MD
== END 2019-11-27 15:00 | disposition home or self-care (01) ==
LOC: ENDO 12:33
PROVIDERS: ATTEND Surgery
DX: Z12.11 Encounter for screening for malignant neoplasm of colon (principal); K64.4 Residual hemorrhoidal skin tags; K64.1 Second degree hemorrhoids; E11.9 Type 2 diabetes mellitus without complications; I10 Essential (primary) hypertension; E03.9 Hypothyroidism, unspecified; E78.00 Pure hypercholesterolemia, unspecified; M19.90 Unspecified osteoarthritis, unspecified site; Z86.010 Personal history of colon polyps; Z98.0 Intestinal bypass and anastomosis status; Z79.899 Other long term (current) drug therapy; Z79.84 Long term (current) use of oral hypoglycemic drugs; Z88.2 Allergy status to sulfonamides; Z88.8 Allergy status to other drugs, medicaments and biological substances; Z90.49 Acquired absence of other specified parts of digestive tract
CPT/HCPCS: 82962